=== PATIENT | female | born 1980 | race Caucasian/White ===

== ENCOUNTER 2016-08-16 23:53 | Emergency (ER) | payer OTHER ==
[~2016-08-16] VITALS: Ht 160 cm; Wt 68.0 kg
[2016-08-17 00:08] VITALS: BP 123/76; PULSE 80; RESP 16; TEMP 98.1; O2SAT 98
--- NOTE | 2016-08-17 00:13 | PD ---
HPI Chief Complaint: Medical Clearance Time Seen by Provider: 00:00 Travel History International Travel<30 days: No Contact w/Intl Traveler<30days: No Traveled to known affect area: No History of Present Illness HPI 36-year-old female presents for medical clearance to go to shelter. This patient has been arrested for domestic violence. She reportedly hit her head several times against the glass inside of the police car. She is complaining of left- sided headache, "wooziness" and a forehead abrasion. Symptoms are aggravated by movement. Denies any other injuries. She is not on any blood thinning medications. She is somewhat of a poor historian. Last tetanus vaccination was 10 years ago. No other complaints. [facility] Social History Alcohol Use: Yes Tobacco Use: Yes Allergies-Medications (Allergen,Severity, Reaction): Coded Allergies: No Known Allergies (Unverified , 08/17/16) Reported Meds & Prescriptions Reported Meds & Active Scripts Active No Active Prescriptions or Reported Medications Review of Systems Except as stated in HPI: all other systems reviewed are Neg Physical Exam Narrative GENERAL: Well-developed well-nourished female in no acute distress SKIN: Warm and dry. Forehead abrasion/contusion HEAD: Skin as noted above with no bony step-offs. Normocephalic. EYES: Pupils equal and round reactive to light extraocular muscles are intact no periorbital ecchymosis. No scleral icterus. No injection or drainage. ENT: No nasal bleeding or discharge. Mucous membranes pink and moist. No sign no rhinorrhea NECK: Trachea midline. No JVD. CARDIOVASCULAR: Regular rate and rhythm. No murmur appreciated. RESPIRATORY: No accessory muscle use. Clear to auscultation. Breath sounds equal bilaterally. GASTROINTESTINAL: Abdomen soft, non-tender, nondistended. Hepatic and splenic margins not palpable. MUSCULOSKELETAL: No obvious deformities. NEUROLOGICAL: Awake and alert. No obvious cranial nerve deficits. Motor grossly within normal limits. Normal speech. PSYCHIATRIC: Appropriate mood and affect; insight and judgment normal. Data Data Last Documented VS Vital Signs Date Time Temp Pulse Resp B/P Pulse Ox O2 Delivery O2 Flow Rate FiO2 08/17/16 00:08 98.1 80 16 123/[address] Brain W/O Iv Contrast(Rout) (08/17/16 ) Tetanus/Diphtheria Tox Adult (Tetanus/Di (08/17/16 00:15) MDM Medical Decision Making Medical Screen Exam Complete: Yes Emergency Medical Condition: Yes Medical Record Reviewed: Yes Differential Diagnosis Closed head injury, concussion, abrasion, intracranial hemorrhage, cranial fracture Narrative Course 36-year-old female presents for medical clearance to go to shelter. She hit her head repeatedly on the glass window of a police car. She is complaining of dizziness, headache. She has a forehead abrasion. Tetanus status updated. CT of the brain has been ordered. The patient refused tetanus vaccination. Upon further questioning she now says that her last tetanus vaccination was 5 years ago. Scripts No Active Prescriptions or Reported Meds Hemant Philip Aug 17, 2016 00:13 No Active Prescriptions or Reported Meds Hemant Philip Aug 17, 2016 00:13
[2016-08-17] MEDS: TETANUS/DIPHTHERIA TOXOID ADULT 0.5 ML VIAL IM ONE ×2 (00:15→00:18)
--- NOTE | 2016-08-17 01:24 | RADRPT ---
EXAM DATE/TIME: 08/17/2016 01:03 [facility] COMPARISON: No previous studies available for comparison. INDICATIONS : Trauma, hit head on car window. RADIATION DOSE: 31.47 CTDIvol (mGy) MEDICAL HISTORY : None SURGICAL HISTORY : None. ENCOUNTER: Initial ACUITY: 1 day PAIN SCALE: 6/10 LOCATION: cranial TECHNIQUE: Multiple contiguous axial images were obtained of the head. Using automated exposure control and adj ustment of the mA and/or kV according to patient size, radiation dose was kept as low as reasonably a chievable to obtain optimal diagnostic quality images. DICOM format image data is available electro nically for review and comparison. FINDINGS: CEREBRUM: The ventricles are normal for age. No evidence of midline shift, mass lesion, hemorrhage or acute in farction. No extra-axial fluid collections are seen. POSTERIOR FOSSA: The cerebellum and brainstem are intact. The 4th ventricle is midline. The cerebellopontine angle i s unremarkable. EXTRACRANIAL: The visualized portion of the orbits is intact. SKULL: The calvaria is intact. No evidence of skull fracture. CONCLUSION: Normal examination. Mendez Davis MD on August 17, 2016 at 1:22 Board Certified Radiologist. This report was verified electronically.
--- NOTE | 2016-08-17 01:33 | PD ---
Physical Exam Date Seen by Provider: Aug 17, 2016 Time Seen by Provider: 01:31 Data Data Last Documented VS Vital Signs Date Time Temp Pulse Resp B/P Pulse Ox O2 Delivery O2 Flow Rate FiO2 08/17/16 00:08 98.1 80 16 123/[address] Brain W/O Iv Contrast(Rout) (08/17/16 ) Tetanus/Diphtheria Tox Adult (Tetanus/Di (08/17/16 00:15) MDM Medical Record Reviewed: Yes Supervised Visit with CORNELIO: Yes Interpretation(s) Last [address] 08/17/16 0000 Signed Impressions: Service Date/Time: Wednesday, August 17, 2016 01:03 - CONCLUSION: Normal examination. Mendez Davis MD Differential Diagnosis MDM: High Differential diagnoses: Fracture, sprain, strain, dislocation, contusion, neurovascular injury Narrative Course CT scan of head is unremarkable for trauma. Patient refuses tetanus. The patient is been medically cleared to go to longterm. This is head contusion Diagnosis Primary Impression: Head contusion Qualified Code: S00.83XA - Contusion of other part of head, initial encounter Additional Impression: Medical clearance for incarceration Patient Instructions: General Instructions Additional Instruction: Rest. Head precautions. Tylenol for pain. Ice packs. Avoid alcohol. Avoid all sedating or intoxicating substances. Recheck with your physician within 1-2 days. Return to the ER for any problems. Med/Other Pt SpecificInfo: Wound Care Scripts No Active Prescriptions or Reported Meds Disposition: [address] LAW ENFORCEMNT Condition: Stable Lex Roberts Aug 17, 2016 01:33
== END 2016-08-17 01:53 ==
LOC: NEPD 23:53
DX: S00.83XA Contusion of other part of head, initial encounter (principal); S00.81XA Abrasion of other part of head, initial encounter; R42 Dizziness and giddiness; R51 Headache; W22.8XXA Striking against or struck by other objects, initial encounter; Y92.810 Car as the place of occurrence of the external cause; Z72.0 Tobacco use
CPT/HCPCS: 70450; 90714